=== PATIENT | female | born 1990 | race Caucasian/White ===

== ENCOUNTER 2022-06-28 22:43 | Emergency (ER) | payer OTHER ==
[2022-06-28] MEDS ORDERED: FAMOTIDINE 20 MG/50 ML IVPB 20 MG/50 ML MG IVPB ONE ×2 (23:41→23:57)
[2022-06-28] MEDS ORDERED: SODIUM CHLORIDE 0.9% 500 ML INFUS.BAG IV ONE (23:41)
[2022-06-28] MEDS ORDERED: ONDANSETRON 4 MG/2 ML VIAL IVPUSH ONE (23:41)
[2022-06-28 23:54] VITALS: RESP 18; BMI 32.3
[2022-06-28] MEDS ORDERED: ONDANSETRON 4 MG/2 ML VIAL ONE (23:57)
[2022-06-29 00:48] LABS: BASO % 0.2 % (0-2.0); EOS % 0.8 % (0-4.5); HEMATOCRIT 38.9 % (32.4-45.2); HEMOGLOBIN 13.3 GM/dL (10.7-15.3); LYMPH % 26.4 % (8-40); MCH 29.9 pg (25.7-33.7); MEAN CELL VOLUME 87.8 fl (80-96); MEAN PLT VOLUME 8.3 fl (7.5-11.1); MONO % 6.2 % (3.8-10.2); NEUT % 66.4 % (42.8-82.8); PLATELET COUNT 252 10^3/uL (134-434); RBC 4.44 M/mm3 (3.60-5.2); RDW 12.9 % (11.6-15.6); WHITE BLOOD COUNT 10.1 K/mm3 (4.0-10.0)
[2022-06-29 01:07] LABS: ALBUMIN 3.7 g/dl (3.4-5.0); BLOOD UREA NITROGEN 11.9 mg/dL (7-18); CALCIUM 9.1 mg/dL (8.5-10.1); CREATININE 0.7 mg/dL (0.55-1.3)
[2022-06-29 01:09] LABS: TOT PROT 7.3 g/dl (6.4-8.2)
[2022-06-29 01:10] LABS: BILIRUBIN,TOTAL 0.2 mg/dL (0.2-1)
[2022-06-29 01:35] VITALS: BP 128/78; PULSE 76; TEMP 98.2
== END 2022-06-29 01:34 | disposition home or self-care (01) ==
LOC: JER 22:43
PROC: 3E033NZ Introduction of Analgesics, Hypnotics, Sedatives into Peripheral Vein, Percutaneous Approach (ICD-10-PCS; principal; 2022-06-28)
PROC: 3E033GC Introduction of Other Therapeutic Substance into Peripheral Vein, Percutaneous Approach (ICD-10-PCS; 2022-06-28)
DX: R10.13 Epigastric pain (principal); R11.0 Nausea
CPT/HCPCS: 36415; 80053; 83690; 85025; 99284-25